=== PATIENT | female | born 1965 | race Caucasian/White ===

== ENCOUNTER 2021-05-02 16:50 | Emergency (ER) | payer OTHER ==
[2021-05-02 18:19] LABS: BASOPHIL 0.3 % (0-2); EOSINOPHIL 1.3 % (0-5); HCT 37.4 % (37.0-47.0); LYMPHOCYTE 32.1 % (15-48); MCH 24.5 pg (25.0-31.0); MCHC 32.1 g/dL (32.0-36.0); MCV 76.3 fL (78.0-100.0); MONOCYTE 5.8 % (0-12); MPV 10.8 fL (6.0-9.5); NEUTROPHIL 60.4 % (41-80); NRBC 0; PLT 159 K/uL (150-400); RDW 15.4 % (11.5-14.0); WBC 6.8 K/uL (4.0-10.5)
[2021-05-02 18:19] LABS: BILIRUBIN NEGATIVE (NEGATIVE); BLOOD NEGATIVE Ery/uL (NEGATIVE); CLARITY CLEAR (CLEAR); COLOR YELLOW (YELLOW); GLUCOSE (U) NORMAL (NORMAL); LEUKOCYTES NEGATIVE Leu/uL (NEGATIVE); NITRITE NEGATIVE (NEGATIVE); PROTEIN NEGATIVE (NEGATIVE); SPECIFIC GRAVITY 1.015 (1.001-1.030); UROBILINOGEN 0.2 mg/dL (0.2-1.0)
[2021-05-02 18:40] LABS: ALBUMIN 4.3 g/dL (3.4-5.0); BILIRUBIN - TOTAL 0.3 mg/dL (0.2-1.0); BUN/CREAT RATIO (CALC) 18.1 RATIO; CREATININE 0.72 mg/dL (0.51-0.95); GLOBULIN (CALCULATION) 3.4 g/dL; TOTAL PROTEIN 7.7 g/dL (6.4-8.2)
== END 2021-05-02 21:42 | disposition home or self-care (01) ==
LOC: FER 16:50
PROVIDERS: Internal Medicine
DX: K59.00 Constipation, unspecified (principal)
CPT/HCPCS: 36415; 80053; 81003; 82150; 83690; 85025; J7030; Q9967

== ENCOUNTER 2022-03-05 11:39 | Emergency (ER) | payer OTHER ==
[2022-03-05] MEDS ORDERED: ULTRAM50 MG PO (14:23)
[2022-03-05] MEDS ORDERED: AMOX TR-K CLV1 EAC4 PO (14:23)
== END 2022-03-05 14:38 | disposition home or self-care (01) ==
LOC: FER 11:39
DX: S21.152A Open bite of left front wall of thorax without penetration into thoracic cavity, initial encounter (principal); S01.351A Open bite of right ear, initial encounter; S81.852A Open bite, left lower leg, initial encounter; S81.851A Open bite, right lower leg, initial encounter; Z23 Encounter for immunization; Z28.310 Unvaccinated for COVID-19; W54.0XXA Bitten by dog, initial encounter; Y93.89 Activity, other specified; Y92.410 Unspecified street and highway as the place of occurrence of the external cause; Y99.0 Civilian activity done for income or pay
CPT/HCPCS: 71101; 90471; 90715